=== PATIENT | male | born 1970 | race Caucasian/White ===

== ENCOUNTER 2022-04-26 12:42 | Day surgery (SDC) | payer OTHER ==
[~2022-04-26] VITALS: Ht 172.7 cm; Wt 88.6 kg
[~2022-04-26 12:42] MED LIST: DAILY VALUE1 EACH PO; GARLIC100 MG PO; OMEPRAZOLE20 MG PO; POTASSIUM99 M3 PO
--- NOTE | 2022-04-26 14:32 | NUR ---
04/26/22 1432 Kellen Rothman 1428 PATIENT ARRIVES TO PACU SLEEPING. LIGHT SNORE. RESP EVEN AND UNLABORED, ROOM AIR SATS >92%. AWAKENS WITH VERBAL STIMULI. DENIES PAIN OR NAUSEA. BACK TO SLEEP WHEN NOT STIMULATED.
--- NOTE | 2022-04-29 08:29 | OR ---
[facility] [address], [place] [address] Signed DATE OF OPERATION: 04/26/2022 SURGEON: Juli Barreto MD PREOPERATIVE DIAGNOSIS: Longstanding gastroesophageal reflux. POSTOPERATIVE DIAGNOSES: 1. Short-segment Rodrigues's esophagus, distal esophagus and hiatal hernia. 2. Antral erosions. 3. Antral polyp, possible adenomatous. PROCEDURE: Upper endoscopy with biopsies. ANESTHESIA: Intravenous sedation; fentanyl 100 mcg and Versed 4 mg. INDICATION: This 51-year-old white man is a patient of Dr. Sanchez at [facility] and was referred for upper endoscopy on the basis of gastroesophageal reflux issues. The patient long ago diagnosed with reflux, was treated empirically with omeprazole, which was quite beneficial. He was weaned off the medications and his symptoms predictably returned. He does have substernal burning pain and epigastric pain on 40 mg omeprazole daily. He has no associated dysphagia and denies any past medical history of weight loss. He has no family history of esophageal or stomach cancer. He is admitted at this time to undergo upper endoscopy to better characterize his problem. He understands the risk of bleeding, infection, and perforation. FINDINGS: There is short-segment Rodrigues's esophagus manifested primarily as small islands of abnormal mucosa above the Z-line. He did have associated hiatal hernia. Additionally, he had some antral erosions and a less than 1 cm unifocal polyp of the antrum. Serpiginous mucosal findings were suggestive that this may represent adenoma rather than typical fundic gland polyp for PPI use. The duodenum was normal. CLOtest was negative 15 minutes post procedure. DESCRIPTION OF PROCEDURE: The patient was brought to the endoscopy suite, and given lidocaine topical hypopharyngeal anesthesia. In the lateral decubitus position, he was given intravenous Electronically Signed By: JULI BARRETO MD 04/29/22 0829 PATIENT NAME: ROSEANN CHOWDHURY OPERATIVE REPORT DATE OF : 72 REPORT #: [id number] PHYSICIAN: JULI BARRETO MD PCP: BAILEY SANCHEZ MD REPORT IS CONFIDENTIAL AND NOT TO BE RELEASED WITHOUT AUTHORIZATION [facility] [address], [place] [address] Signed infusion of fentanyl and Versed for sedation with full cardiopulmonary monitoring. A bite block was placed. An Olympus video upper endoscope was passed in the hypopharynx. The vocal cords were normal. The scope was advanced to the esophagus without problem; throughout its length it was normal except in the distal portion where prominent geographic mucosal changes were noted including islands suggestive of Rodrigues's epithelium. There was no kirill malignancy in any way. The scope was advanced to the stomach, which was insufflated with air. Rugal folds were normal. The scope was passed through the antrum into the pylorus after noting a few superficial antral erosions. The duodenum was normal. Biopsies were obtained nevertheless to assess for celiac disease. The scope was withdrawn and a pre-pyloric antral polyp was noted. This had a serpiginous mucosal appearance which is suggestive of adenoma rather than a fundic gland polyp. Complete excision would require snare and other means and on that basis simple biopsy was undertaken of the polyp at this time. There were no other polyps of note. Retroflexed view confirmed a hiatal hernia. The scope was straightened and withdrawn to the distal esophagus after gastric biopsies were obtained to assess for H pylori. The scope was withdrawn and biopsies were taken of the distal esophageal mucosa including islands of metaplasia, most likely. The midesophagus was biopsied, though it appeared normal. Scope was removed. The patient was taken to the recovery room in good condition. CONCLUDING DIAGNOSES: 1. Gastroesophageal reflux related to hiatal hernia, markedly improved with PPI medication. 2. Probable short-segment Rodrigues's epithelium, distal esophagus. 3. Pre-pyloric antral erosions and unifocal polyps suggestive though not diagnostic of adenoma. PLAN: Would have him continue with his omeprazole 40 mg a day. Consideration will be made for anti-reflux operation depending on the patient preference and other factors. We will review the pathology report for the antral polyp. If it is adenomatous, additional endoscopy and endoscopic resection would be appropriate. He will return to see us in approximately 4 to 6 weeks. Juli Barreto MD /BENJI /[id number] Electronically Signed By: JULI BARRETO MD 04/29/22 0829 PATIENT NAME: ROSEANN CHOWDHURY OPERATIVE REPORT DATE OF : 72 REPORT #: [id number] PHYSICIAN: JULI BARRETO MD PCP: BAILEY SANCHEZ MD REPORT IS CONFIDENTIAL AND NOT TO BE RELEASED WITHOUT AUTHORIZATION [address] [address] Signed cc: Bailey Sanchez MD Copies: BAILEY SANCHEZ MD ~ Electronically Signed By: JULI BARRETO MD 04/29/22 0829 PATIENT NAME: ROSEANN CHOWDHURY OPERATIVE REPORT DATE OF : 72 REPORT #: [id number] PHYSICIAN: JULI BARRETO MD PCP: BAILEY SANCHEZ MD REPORT IS CONFIDENTIAL AND NOT TO BE RELEASED WITHOUT AUTHORIZATION
--- NOTE | 2022-05-04 17:14 | PATH ---
[facility] [address] [place], [place] [address] Signed SPECIMEN(S): A DUODENAL BIOPSY SPECIMEN(S): B ANTRUM/PYLORUS BIOPSIES SPECIMEN(S): C ANTRUM POLYP-RULE OUT ADENOMA SPECIMEN(S): D UPPER ESOPHAGEAL BIOPSIES SPECIMEN(S): E MIDDLE ESOPHAGEAL BIOPSY SPECIMEN SOURCE: A. DUODENAL BIOPSY B. ANTRUM/PYLORUS BIOPSIES C. ANTRUM POLYP-RULE OUT ADENOMA D. UPPER ESOPHAGEAL BIOPSIES E. MIDDLE ESOPHAGEAL BIOPSY CLINICAL HISTORY: GERD, epigastric pain. Postop Dx: Hiatal hernia, distal esophagitis, antral polyp, short segment Rodrigues's esophagus. FINAL PATHOLOGIC DIAGNOSIS: A. Duodenum, biopsy: - No significant histopathology. B. Stomach, antrum/pylorus, biopsies: - Mild superficial chronic gastritis. C. Stomach, antrum, polypectomy: - Hyperplastic polyp. - No evidence of neoplasia. D. Upper esophagus, biopsies: - Rodrigues's esophagus. - Rodrigues's epithelium focally present under squamous epithelium. - No evidence of dysplasia. E. Middle esophagus, biopsy: - Portions of unremarkable squamous mucosa. COMMENT: Regarding specimen A, the sections from the duodenal biopsy show portions of duodenal mucosa with long finger-like villi. There is no villous atrophy, crypt hyperplasia or intraepithelial lymphocytosis, making a diagnosis of celiac disease unlikely. There is no evidence of peptic duodenitis, microorganisms, abnormal infiltrates or neoplasia. Regarding specimen B, the sections through the gastric biopsy show an architecturally normal gastric mucosa. The superficial lamina propria contains PATIENT NAME: ROSEANN BETHEA PATHOLOGY DATE OF : 72 REPORT #: [id number] PHYSICIAN: YUKI PATHOLOGY PCP: BAILEY RAPHAEL MD REPORT IS CONFIDENTIAL AND NOT TO BE RELEASED WITHOUT AUTHORIZATION [facility] [address] [place], [place] [address] Signed an increased number of lymphocytes and plasma cells. A careful search is made for H. pylori and none are identified. There is no evidence of intestinal metaplasia or abnormal infiltrates. Helicobacter pylori immunohistochemical stain is pending and results will follow in an addendum report. Regarding specimen C, the sections through the polyp in the gastric body show portions of very reactive-appearing foveolar epithelium and dilated gastric pits. These are surrounded by an increased and edematous stroma. The overall architecture of the mucosa is composed of broad fronds of tissue. There is no evidence of dysplasia or neoplasia in any of the biopsy fragments. There is no evidence of intestinal metaplasia or H. pylori. Benign gastric hyperplastic polyps are common and usually related to chronic gastritis. However, sometimes lesions resembling hyperplastic polyps may be seen in patients with polyps from hamartomatous syndromes (including Peutz-Jeghers, Cronkhite-Chacorta, and Juvenile polyposis) and it may be difficult to distinguish these syndrommatic polyps from ordinary hyperplastic polyps solely on their histological features. Hyperplastic polyps may also sometimes be difficult to distinguish from hypertrophic gastropathies (e.g., Menetrier's disease). Correlation with clinical findings and endoscopic/histologic appearance of the remaining gastric mucosa may be helpful in excluding these uncommon entities in the differential diagnosis. Regarding specimen D, the sections through the biopsy show the presence of both squamous and glandular mucosa. The squamous epithelium appears reactive. The areas of glandular mucosa contain specialized intestinal epithelium including the presence of goblet cells. There is no evidence of dysplasia or malignancy. There are areas of Rodrigues's epithelium located under the squamous epithelium. This raises the possibility of a more extensive lesion than appreciated endoscopically. There is no evidence of H. pylori associated with the glandular mucosa. Regarding specimen E, the esophageal biopsy shows normal-appearing squamous epithelium. There is no evidence of acute or chronic inflammation. [id number] MICROSCOPIC EXAMINATION: Histologic sections of all submitted blocks are examined by light microscopy. These findings, together with the gross examination, support the pathologic diagnosis. PATIENT NAME: ROSEANN BETHEA PATHOLOGY DATE OF : 72 REPORT #: [id number] PHYSICIAN: YUKI HARRIS PCP: BAILEY RAPHAEL MD REPORT IS CONFIDENTIAL AND NOT TO BE RELEASED WITHOUT AUTHORIZATION [facility] [address] [place], [place] [address] Signed GROSS DESCRIPTION: A. The specimen, labeled and designated "Bethea, duodenal biopsy," is received in formalin and consists of one liao soft tissue fragment, 0.3 cm. Entirely submitted in (A1). B. The specimen, labeled and designated "Bethea, antrum/pyloric biopsy," is received in formalin and consists of two liao soft tissue fragments, both 0.2 cm. Entirely submitted in (B1). C. The specimen, labeled and designated "Bethea, antrum/pylorus polypectomy," is received in formalin and consists of one liao soft tissue fragment, 0.3 cm. Entirely submitted in (C1). D. The specimen, labeled and designated "Bethea, upper esophageal biopsies," is received in formalin and consists of five white-liao soft tissue fragments, ranging from 0.2-0.3 cm. Entirely submitted in (D1). E. The specimen, labeled and designated "Bethea, mid esophagus biopsy," is received in formalin and consists of one liao soft tissue fragment, 0.3 cm. Entirely submitted in (E1). AC (under the direct supervision of a pathologist) The Gross Description was prepared using a voice recognition system. The report was reviewed for accuracy; however, sound-alike word errors, addition and/or deletions may occur. If there is any question about this report, please contact Client Services. PERFORMING LABORATORY: The technical component was performed by [employer] [facility], [address] [place] [address] (CLIA# [id number]). The professional interpretation was performed by [facility], [facility], [address] [place] [id number] (CLIA#: [id number]). Diagnostician: Leonel Marlow MD Pathologist Electronically Signed 05/04/2022 Copies: ~ PATIENT NAME: ROSEANN BETHEA PATHOLOGY DATE OF : 72 REPORT #: [id number] PHYSICIAN: YUKI HARRIS PCP: BAILEY RAPHAEL MD REPORT IS CONFIDENTIAL AND NOT TO BE RELEASED WITHOUT AUTHORIZATION
== END 2022-04-26 15:25 | disposition home or self-care (01) ==
LOC: DS 12:42 → OPS 12:42 → DS 14:00 → OPS 14:00
PROVIDERS: ATTEND Surgery
PROC: 0DB78ZX Excision of Stomach, Pylorus, Via Natural or Artificial Opening Endoscopic, Diagnostic (ICD-10-PCS; 2022-04-26)
PROC: 0DB38ZX Excision of Lower Esophagus, Via Natural or Artificial Opening Endoscopic, Diagnostic (ICD-10-PCS; principal; 2022-04-26 14:00)
DX: K22.70 Barrett's esophagus without dysplasia (principal); K31.7 Polyp of stomach and duodenum; K21.9 Gastro-esophageal reflux disease without esophagitis; K44.9 Diaphragmatic hernia without obstruction or gangrene; K21.00 Gastro-esophageal reflux disease with esophagitis, without bleeding; K29.30 Chronic superficial gastritis without bleeding
CPT/HCPCS: 99153; G0500; J2250; J3010; J7121